=== PATIENT | female | born 1960 | race Caucasian/White ===

== ENCOUNTER 2017-09-30 22:36 | Emergency (ER) | payer BC, MEDICAID ==
[~2017-09-30] VITALS: Ht 162.6 cm; Wt 65.8 kg
[2017-09-30 22:52] VITALS: BP 152/103
== END 2017-10-01 00:23 | disposition left against medical advice (07) ==
LOC: ER 22:43
DX: R06.02 Shortness of breath (principal); F41.9 Anxiety disorder, unspecified; Z53.21 Procedure and treatment not carried out due to patient leaving prior to being seen by health care provider
CPT/HCPCS: 71046